=== PATIENT | female | born 1995 | race Caucasian/White ===

== ENCOUNTER 2017-05-03 13:07 | Outpatient (CLI) | payer BC | END 2017-05-03 13:08 | disposition home or self-care (01) | LOC: LABBT 13:07 | PROVIDERS: ATTEND Surgery | DX: Z01.812 Encounter for preprocedural laboratory examination (principal); R59.1 Generalized enlarged lymph nodes ==

== ENCOUNTER 2017-05-04 09:01 | Day surgery (SDC) | payer BC ==
[2017-05-03 13:48] VITALS: BMI 25.2
[2017-05-04] MEDS ORDERED: Midazolam HCl 2 mg/2 ml Vial ONE ×2 (11:15→12:48)
[2017-05-04 11:20] LABS: #Basophils 0.1 thou/uL (0.0-0.2); #Eosinphils 0.3 thou/uL (0.0-0.7); #Lymphocytes 2.2 thou/uL (1.20-3.40); #Monocytes 0.4 thou/uL (0.11-0.59); #Neutrophils 1.6 thou/uL (1.40-6.50); %Basophils 1.5 % (0.0-1.0); %Eosinophils 5.8 % (0.0-10.0); %Lymphocytes 49.3 % (21.0-51.0); %Monocytes 8.3 % (0.0-10.0); Hematocrit 39.3 % (36.0-47.0); Mean Platelet Volume 9.3 fL (7.4-10.4); Red Blood Cell (RBC) Count 4.28 mill/uL (4.20-5.40); White Blood Cell (WBC) Count 4.4 thou/uL (4.8-10.8)
[2017-05-04 11:29] LABS: Anion Gap 8 mmol/L (10-20); BUN (Urea Nitrogen) 10 mg/dL (7.0-18.7); Calc. Creatinine Clearance 122 mL/min (70-130); Calcium 9.8 mg/dL (7.8-10.44); Carbon Dioxide 26 mmol/L (22-29); Chloride 109 mmol/L (98-107); Estimated GFR-MDRD Greater than 90
[2017-05-04] MEDS ORDERED: CEFAZOLIN/Water 2 GM/20 ML SYRINGE ONE (11:36)
[2017-05-04] MEDS ORDERED: Bupivacaine/Epinephrine 0.25% 30 ML VIAL ONE (12:39)
[2017-05-04] MEDS ORDERED: Fentanyl 100 MCG/2 ML VIAL ONE (12:48)
[2017-05-04] MEDS ORDERED: Meperidine HCl/PF 25 MG/ML VIAL ONE (14:18)
[2017-05-04] MEDS ORDERED: Ondansetron HCl/PF 4 MG/2 ML Vial ONE (14:24)
[2017-05-04] MEDS ORDERED: Propofol 200 MG/20 ML VIAL ONE (14:24)
[2017-05-04] MEDS ORDERED: Lidocaine 1% PF 5 ML VIAL ONE (14:24)
--- NOTE | 2017-05-06 15:29 | PDOC.OP ---
Operative Note - Operative Note Operative Note: PROCEDURE: Left inguinal lymph node excisional biopsy DATE OF PROCEDURE: 05/04/2017 SURGEON: Casi Hinton M.D. PREOPERATIVE DIAGNOSES: Enlarged left inguinal lymph node POSTOPERATIVE DIAGNOSIS: Enlarged left inguinal lymph node HISTORY: Patient with significantly enlarged left inguinal lymph node. No other abnormal lymph nodes on physical examination. No history of trauma or infection to the leg or groin area. No improvement on antibiotics and no tenderness to palpation. FNA was negative for malignancy. Excisional biopsy was recommended to exclude Hodgkin's or oither lymphoma. PROCEDURE IN DETAIL: After informed consent was obtained and appropriate preoperative antibiotics administered the patient was taken to the operating which is placement supine position and anesthesia was administered. She was prepped and draped in standard sterile fashion and local anesthesia infused the skin and subcutaneous tissues overlying the enlarged lymph node. An oblique incision was made and dissection carried down to the lymph node which was dissected free circumferentially. Small feeding lymphatics were clipped and divided between clips. The lymph node was removed and a small portion sent for Gram stain and culture as well as fungal and mycobacterial cultures. The remainder was sent fresh to pathology. The wound was irrigated and hemostasis confirmed. Subcutaneous tissues were reapproximated with 3-0 Monocryl and the skin was closed with 4-0 subcuticular Monocryl. Dermabond dressings were placed and the patient was taken to the recovery room in good condition. Estimated blood loss was minimal. There were no complications. Specimen is lymph node for pathology and for cultures.
== END 2017-05-04 15:25 | disposition home or self-care (01) ==
LOC: SDC 09:01
PROVIDERS: ATTEND Surgery
PROC: 07BJ0ZX Excision of Left Inguinal Lymphatic, Open Approach, Diagnostic (ICD-10-PCS; principal; 2017-05-04)
DX: R59.0 Localized enlarged lymph nodes (principal); J45.909 Unspecified asthma, uncomplicated; D53.9 Nutritional anemia, unspecified; Z79.2 Long term (current) use of antibiotics; Z79.899 Other long term (current) drug therapy; Z97.5 Presence of (intrauterine) contraceptive device; Z90.89 Acquired absence of other organs; Z98.890 Other specified postprocedural states
CPT/HCPCS: 80048; 84703; 85025; 87070; 87205; 88184; 88307; 88312; 88341; 88342; 96374; J2001; J2175; J2250; J2405; J2704; J3010